=== PATIENT | female | born 1965 | race African-American/Black ===

== ENCOUNTER 2019-03-23 03:06 | Inpatient (IN) | payer MEDICAID ==
[~2019-03-23] VITALS: Ht 170.2 cm; Wt 125.6 kg
[2019-03-23] MEDS ORDERED: ONDANSETRON HCL 4MG/2ML INJ IV STA (04:01)
[2019-03-23] MEDS ORDERED: MORPHINE SULFATE 4 MG/ML CPJ (NOT FOR IM USE) IV STA (04:01)
[2019-03-23] MEDS ORDERED: PROPOFOL 200MG/20ML VIAL IV ONE (04:15)
[2019-03-23] MEDS ORDERED: ONDANSETRON HCL 4MG/2ML INJ IV ONE (04:15)
[2019-03-23 04:22] LABS: BASOPHILS % 0.5 % (0.0-2.0); EOSINOPHILS % 0.3 % (0.0-5.0); HEMATOCRIT. 44.9 % (36.0-48.0); HEMOGLOBIN. 14.3 g/dL (12.0-16.0); LYMPHOCYTES % 9.4 % (20.0-50.0); MEAN CORPUSCULAR HEMOGLOBIN 25.4 pg (28.0-32.0); MEAN CORPUSCULAR VOLUME 79.8 fL (81.0-99.0); MEAN PLATELET VOLUME 8.8 fl (7.4-10.4); MONOCYTES % 5.4 % (2.0-8.0); NEUTROPHILS % 84.4 % (40.0-76.0); PLATELET 225 x1000/uL (130-400); RED BLOOD CELL COUNT 5.62 mill/uL (4.2-5.4); RED CELL DISTRIBUTION WIDTH 14.8 % (11.6-14.6)
[2019-03-23 04:26] LABS: CHLORIDE 99 mEq/L (98-107)
[2019-03-23] MEDS ORDERED: SODIUM CHLORIDE 0.9% 1,000 ML IV ONE (04:59)
[2019-03-23] MEDS ORDERED: MORPHINE SULFATE 2 MG/ML CPJ (NOT FOR IM USE) IV PRN (08:30)
[2019-03-23] MEDS ORDERED: ONDANSETRON HCL 4MG/2ML INJ IV PRN ×3 (08:30→18:00)
[2019-03-23] MEDS ORDERED: HYDROCODONE/ACETAMINOPHEN 5/325MG TABLET PO PRN (08:30)
[2019-03-23] MEDS ORDERED: DEXTROSE 50% WATER 50ML SYRINGE IV PRN (08:45)
[2019-03-23 08:50] VITALS: BP 116/55
[2019-03-23 09:00] VITALS: BP 116/55
[2019-03-23] MEDS ORDERED: FUROSEMIDE 40MG/4ML VIAL IVP SCH (09:00)
[2019-03-23] MEDS ORDERED: CLONIDINE 0.1MG TABLET PO PRN (09:00)
[2019-03-23 09:04] LABS: LDL CHOLESTEROL 91 mg/dL (5-100)
[2019-03-23 09:06] LABS: HDL CHOLESTEROL 31 mg/dL (40-59)
[2019-03-23 12:00] VITALS: BP 101/48
[2019-03-23] MEDS: INSULIN LISPRO 100 UNITS/ML SUBCUT SCH ×3 (12:50→22:14)
[2019-03-23] MEDS: BLOOD SUGAR DIAGNOSTIC STRIP TEST SCH ×3 (12:59→21:00)
[2019-03-23] MEDS ORDERED: BUPIVACAINE HCL 0.5% (5MG/ML) 50ML ONE (14:16)
[2019-03-23] MEDS ORDERED: BUPIVACAINE HCL/EPINEPHRINE/PF 0.5%/0.0005 10ML ONE (14:19)
[2019-03-23] MEDS ORDERED: BACITRACIN 50,000 UNITS/VIAL ONE (14:22)
[2019-03-23 16:00] VITALS: BP 118/56
[2019-03-23 16:03] LABS: INR 1.1; PARTIAL THROMBOPLASTIN TIME 26.8 sec (23.4-31.0); PROTHROMBIN TIME 10.9 sec (9.6-11.0)
[2019-03-23] MEDS ORDERED: VANCOMYCIN HCL 1 GM/VIAL ONE (16:56)
[2019-03-23] MEDS ORDERED: CLINDAMYCIN 900 MG PREMIX 50 ML IV ONE (17:25)
[2019-03-23] MEDS ORDERED: FENTANYL CITRATE/PF 50MCG/ML 2ML VIAL ONE (17:28)
[2019-03-23] MEDS ORDERED: MEPERIDINE HCL/PF 25MG/ML CPJ IV PRN (18:00)
[2019-03-23] MEDS ORDERED: LABETALOL 5MG/ML SYR 20 MG/4 ML SYRINGE IV PRN (18:00)
[2019-03-23] MEDS ORDERED: HYDROMORPHONE HCL/PF 2MG/ML CPJ IV PRN (18:00)
[2019-03-23 18:27] LABS: CLARITY URINE CLEAR (CLEAR); COLOR URINE YELLOW (YELLOW); KETONES URINE NEGATIVE (NEGATIVE); LEUKOCYTE ESTERASE URINE NEGATIVE (NEGATIVE); NITRITE URINE POSITIVE (NEGATIVE); OCCULT BLOOD URINE 1+ (NEGATIVE); PROTEIN URINE NEGATIVE (NEGATIVE); SPECIFIC GRAVITY URINE 1.008 (1.005-1.030); UROBILINOGEN URINE 0.2 E.U./dL (0.2-1.0)
[2019-03-23 18:39] LABS: *AMPHETAMINES SCREEN URINE NEGATIVE (NEGATIVE); *BARBITURATES SCREEN URINE NEGATIVE (NEGATIVE); *BENZODIAZEPINES SCREEN URINE NEGATIVE (NEGATIVE); *COCAINE SCREEN URINE NEGATIVE (NEGATIVE)
[2019-03-23 18:40] LABS: CANNABINOID URINE SCREEN NEGATIVE (NEGATIVE); METHADONE URINE SCREEN NEGATIVE (NEGATIVE); OPIATES URINE SCREEN PRESUMTIVE POSITIVE (NEGATIVE); PHENCYCLIDINE URINE SCREEN NEGATIVE (NEGATIVE)
[2019-03-23 20:43] VITALS: BP 120/62
[2019-03-23] MEDS: HYDROMORPHONE HCL/PF 2MG/ML CPJ IV PRN (22:04)
[2019-03-23] MEDS: CLINDAMYCIN 900 MG PREMIX 50 ML IV SCH (22:24)
[2019-03-24] VITALS (7 sets, daily range): BP systolic 108–127; BP diastolic 47–88
[2019-03-24] MEDS: CLINDAMYCIN 900 MG PREMIX 50 ML IV SCH (04:17)
[2019-03-24] MEDS: HYDROCODONE/ACETAMINOPHEN 5/325MG TABLET PO PRN ×5 (05:25→22:28)
[2019-03-24 06:54] LABS: HEMATOCRIT. 39.4 % (36.0-48.0); HEMOGLOBIN. 12.6 g/dL (12.0-16.0); MEAN CORPUSCULAR HEMOGLOBIN 25.3 pg (28.0-32.0); MEAN CORPUSCULAR VOLUME 79.3 fL (81.0-99.0); MEAN PLATELET VOLUME 8.8 fl (7.4-10.4); PLATELET 227 x1000/uL (130-400); RED BLOOD CELL COUNT 4.97 mill/uL (4.2-5.4); RED CELL DISTRIBUTION WIDTH 15.2 % (11.6-14.6)
[2019-03-24] MEDS: BLOOD SUGAR DIAGNOSTIC STRIP TEST SCH ×4 (07:12→21:00)
[2019-03-24 08:04] LABS: CHLORIDE 101 mEq/L (98-107)
[2019-03-24] MEDS: ENOXAPARIN 40MG/0.4ML SYR SUBCUT SCH ×2 (08:29→22:26)
[2019-03-24] MEDS: INSULIN LISPRO 100 UNITS/ML SUBCUT SCH ×4 (08:35→22:28)
[2019-03-24 13:06] LABS: PLATELET ESTIMATE NORMAL
[2019-03-24] MEDS: LEVOFLOXACIN 500MG PREMIX 100 ML IV SCH (14:16)
[2019-03-25] VITALS: BP 112/72
[2019-03-25 04:00] VITALS: BP 121/78
[2019-03-25] MEDS: HYDROCODONE/ACETAMINOPHEN 5/325MG TABLET PO PRN ×2 (05:21→19:05)
[2019-03-25 06:38] LABS: BASOPHILS % 0.3 % (0.0-2.0); EOSINOPHILS % 0.8 % (0.0-5.0); HEMOGLOBIN. 12.6 g/dL (12.0-16.0); LYMPHOCYTES % 18.1 % (20.0-50.0); MEAN CORPUSCULAR HEMOGLOBIN 25.7 pg (28.0-32.0); MEAN CORPUSCULAR VOLUME 79.5 fL (81.0-99.0); MONOCYTES % 9.1 % (2.0-8.0); NEUTROPHILS % 71.7 % (40.0-76.0); PLATELET 202 x1000/uL (130-400); RED CELL DISTRIBUTION WIDTH 15.1 % (11.6-14.6)
[2019-03-25] MEDS: BLOOD SUGAR DIAGNOSTIC STRIP TEST SCH ×4 (06:56→21:12)
[2019-03-25 07:51] VITALS: BP 89/55
[2019-03-25 08:14] LABS: CHLORIDE 102 mEq/L (98-107)
[2019-03-25] MEDS: INSULIN LISPRO 100 UNITS/ML SUBCUT SCH ×4 (08:26→21:30)
[2019-03-25] MEDS: ENOXAPARIN 40MG/0.4ML SYR SUBCUT SCH ×2 (08:27→21:29)
[2019-03-25 11:23] VITALS: BP 114/64
[2019-03-25] MEDS: LEVOFLOXACIN 500MG PREMIX 100 ML IV SCH (12:33)
[2019-03-25] MEDS ORDERED: LEVO500T2 MT (14:33)
[2019-03-25] MEDS ORDERED: HYDR-4001 MT (14:33)
[2019-03-25 15:48] VITALS: BP 112/70
[2019-03-25 20:00] VITALS: BP 100/58
[2019-03-26] VITALS: BP 113/75
[2019-03-26] MEDS: HYDROCODONE/ACETAMINOPHEN 5/325MG TABLET PO PRN ×3 (00:50→21:01)
[2019-03-26 04:00] VITALS: BP 116/63
[2019-03-26] MEDS: BLOOD SUGAR DIAGNOSTIC STRIP TEST SCH ×4 (06:28→21:00)
[2019-03-26 07:11] LABS: BASOPHILS % 0.4 % (0.0-2.0); EOSINOPHILS % 0.6 % (0.0-5.0); HEMATOCRIT. 38.9 % (36.0-48.0); HEMOGLOBIN. 12.7 g/dL (12.0-16.0); LYMPHOCYTES % 18.3 % (20.0-50.0); MEAN CORPUSCULAR HEMOGLOBIN 25.8 pg (28.0-32.0); MEAN CORPUSCULAR VOLUME 78.9 fL (81.0-99.0); MEAN PLATELET VOLUME 8.8 fl (7.4-10.4); MONOCYTES % 7.5 % (2.0-8.0); NEUTROPHILS % 73.2 % (40.0-76.0); PLATELET 219 x1000/uL (130-400); RED BLOOD CELL COUNT 4.93 mill/uL (4.2-5.4); RED CELL DISTRIBUTION WIDTH 14.8 % (11.6-14.6)
[2019-03-26 07:15] LABS: CHLORIDE 100 mEq/L (98-107)
[2019-03-26 08:07] VITALS: BP 129/81
[2019-03-26] MEDS: ENOXAPARIN 30MG/0.3ML SYR SUBCUT SCH ×2 (09:09→21:00)
[2019-03-26] MEDS: INSULIN LISPRO 100 UNITS/ML SUBCUT SCH ×4 (09:28→21:00)
[2019-03-26 11:43] VITALS: BP 99/60
[2019-03-26] MEDS: LEVOFLOXACIN 500MG PREMIX 100 ML IV SCH (13:27)
[2019-03-26 16:33] VITALS: BP 117/54
[2019-03-26] MEDS: DOCUSATE SODIUM 250MG CAPSULE PO SCH (17:50)
[2019-03-26 20:00] VITALS: BP 111/60
[2019-03-27] VITALS: BP 126/72
[2019-03-27 04:00] VITALS: BP 104/48
[2019-03-27] MEDS: HYDROCODONE/ACETAMINOPHEN 5/325MG TABLET PO PRN ×2 (05:40→19:59)
[2019-03-27] MEDS: BLOOD SUGAR DIAGNOSTIC STRIP TEST SCH ×4 (06:22→20:06)
[2019-03-27 06:37] LABS: BASOPHILS % 0.4 % (0.0-2.0); EOSINOPHILS % 0.7 % (0.0-5.0); HEMATOCRIT. 40.3 % (36.0-48.0); HEMOGLOBIN. 13.1 g/dL (12.0-16.0); MEAN CORPUSCULAR HEMOGLOBIN 25.7 pg (28.0-32.0); MEAN CORPUSCULAR VOLUME 79.1 fL (81.0-99.0); MEAN PLATELET VOLUME 8.7 fl (7.4-10.4); MONOCYTES % 6.8 % (2.0-8.0); NEUTROPHILS % 76.1 % (40.0-76.0); PLATELET 246 x1000/uL (130-400); RED BLOOD CELL COUNT 5.09 mill/uL (4.2-5.4); RED CELL DISTRIBUTION WIDTH 15.2 % (11.6-14.6)
[2019-03-27 07:33] LABS: CHLORIDE 101 mEq/L (98-107)
[2019-03-27 08:00] VITALS: BP 147/80
[2019-03-27] MEDS: HYDROMORPHONE HCL/PF 2MG/ML CPJ IV PRN (09:29)
[2019-03-27] MEDS: ENOXAPARIN 30MG/0.3ML SYR SUBCUT SCH ×2 (09:31→20:02)
[2019-03-27] MEDS: DOCUSATE SODIUM 250MG CAPSULE PO SCH (09:31)
[2019-03-27] MEDS: INSULIN LISPRO 100 UNITS/ML SUBCUT SCH ×4 (09:51→20:06)
[2019-03-27 12:00] VITALS: BP 142/86
[2019-03-27] MEDS: LEVOFLOXACIN 500MG PREMIX 100 ML IV SCH (15:28)
[2019-03-27 16:00] VITALS: BP 115/50
[2019-03-27 20:00] VITALS: BP 113/89
[2019-03-28] VITALS: BP 118/65
[2019-03-28] MEDS: HYDROCODONE/ACETAMINOPHEN 5/325MG TABLET PO PRN ×4 (01:34→14:47)
[2019-03-28 04:00] VITALS: BP 109/56
[2019-03-28] MEDS: BLOOD SUGAR DIAGNOSTIC STRIP TEST SCH ×4 (06:24→21:53)
[2019-03-28 08:00] VITALS: BP 111/72
[2019-03-28] MEDS: ENOXAPARIN 30MG/0.3ML SYR SUBCUT SCH ×2 (08:45→21:53)
[2019-03-28] MEDS: DOCUSATE SODIUM 250MG CAPSULE PO SCH (08:46)
[2019-03-28] MEDS: INSULIN LISPRO 100 UNITS/ML SUBCUT SCH ×4 (09:23→21:55)
[2019-03-28] MEDS ORDERED: DIPHENHYDRAMINE 50MG CAPSULE PO PRN (09:45)
[2019-03-28 12:00] VITALS: BP 111/71
[2019-03-28] MEDS: LEVOFLOXACIN 500MG PREMIX 100 ML IV SCH (13:17)
[2019-03-28] MEDS ORDERED: LACTULOSE 20G/30ML UDC PO NR (15:27)
[2019-03-28 16:00] VITALS: BP 113/50
[2019-03-28 20:00] VITALS: BP 140/80
[2019-03-28] MEDS: ACETAMINOPHEN 325MG TABLET PO PRN (21:51)
[2019-03-29] VITALS: BP 138/66
[2019-03-29 04:00] VITALS: BP 118/57
[2019-03-29 05:50] LABS: BASOPHILS % 0.1 % (0.0-2.0); EOSINOPHILS % 1.4 % (0.0-5.0); HEMOGLOBIN. 13.1 g/dL (12.0-16.0); LYMPHOCYTES % 14.9 % (20.0-50.0); MEAN CORPUSCULAR HEMOGLOBIN 25.9 pg (28.0-32.0); MEAN CORPUSCULAR VOLUME 79.1 fL (81.0-99.0); MEAN PLATELET VOLUME 8.5 fl (7.4-10.4); MONOCYTES % 6.2 % (2.0-8.0); NEUTROPHILS % 77.4 % (40.0-76.0); PLATELET 241 x1000/uL (130-400); RED BLOOD CELL COUNT 5.06 mill/uL (4.2-5.4); RED CELL DISTRIBUTION WIDTH 14.9 % (11.6-14.6)
[2019-03-29 06:43] LABS: CHLORIDE 102 mEq/L (98-107)
[2019-03-29] MEDS: INSULIN LISPRO 100 UNITS/ML SUBCUT SCH ×5 (07:50→21:16)
[2019-03-29] MEDS: ENOXAPARIN 30MG/0.3ML SYR SUBCUT SCH ×2 (11:01→21:34)
[2019-03-29] MEDS: DOCUSATE SODIUM 250MG CAPSULE PO SCH (11:02)
[2019-03-29] MEDS: BLOOD SUGAR DIAGNOSTIC STRIP TEST SCH ×4 (12:20→21:34)
[2019-03-29 12:38] VITALS: BP 129/67
[2019-03-29] MEDS: LEVOFLOXACIN 500MG PREMIX 100 ML IV SCH (13:53)
[2019-03-29] MEDS: ACETAMINOPHEN 325MG TABLET PO PRN ×2 (14:42→21:34)
[2019-03-29 15:55] VITALS: BP 116/78
[2019-03-29 20:00] VITALS: BP 131/90
[2019-03-30] VITALS: BP 118/71
[2019-03-30 04:00] VITALS: BP 131/83
[2019-03-30] MEDS: ACETAMINOPHEN 325MG TABLET PO PRN ×2 (06:56→20:54)
[2019-03-30] MEDS: BLOOD SUGAR DIAGNOSTIC STRIP TEST SCH ×4 (06:59→20:54)
[2019-03-30 07:49] LABS: BASOPHILS % 0.5 % (0.0-2.0); EOSINOPHILS % 1.4 % (0.0-5.0); HEMATOCRIT. 40.6 % (36.0-48.0); LYMPHOCYTES % 14.6 % (20.0-50.0); MEAN CORPUSCULAR HEMOGLOBIN 25.6 pg (28.0-32.0); MEAN PLATELET VOLUME 8.6 fl (7.4-10.4); MONOCYTES % 5.9 % (2.0-8.0); NEUTROPHILS % 77.6 % (40.0-76.0); PLATELET 243 x1000/uL (130-400); RED BLOOD CELL COUNT 5.07 mill/uL (4.2-5.4); RED CELL DISTRIBUTION WIDTH 15.5 % (11.6-14.6)
[2019-03-30] MEDS: INSULIN LISPRO 100 UNITS/ML SUBCUT SCH ×4 (07:50→20:24)
[2019-03-30 08:00] VITALS: BP 115/61
[2019-03-30 08:15] LABS: CHLORIDE 104 mEq/L (98-107)
[2019-03-30] MEDS: DOCUSATE SODIUM 250MG CAPSULE PO SCH (09:43)
[2019-03-30] MEDS: ENOXAPARIN 30MG/0.3ML SYR SUBCUT SCH ×2 (09:43→20:54)
[2019-03-30 11:32] VITALS: BP 115/82
[2019-03-30] MEDS: LEVOFLOXACIN 500MG PREMIX 100 ML IV SCH (13:03)
[2019-03-30 14:54] VITALS: BP 134/74
[2019-03-30 20:00] VITALS: BP 114/61
[2019-03-31] VITALS: BP 124/74
[2019-03-31 04:00] VITALS: BP 112/75
[2019-03-31] MEDS: ACETAMINOPHEN 325MG TABLET PO PRN ×2 (06:12→12:36)
[2019-03-31] MEDS: BLOOD SUGAR DIAGNOSTIC STRIP TEST SCH ×3 (06:52→17:41)
[2019-03-31 08:00] VITALS: BP 105/57
[2019-03-31] MEDS: DOCUSATE SODIUM 250MG CAPSULE PO SCH (08:33)
[2019-03-31] MEDS: INSULIN LISPRO 100 UNITS/ML SUBCUT SCH ×3 (08:33→17:47)
[2019-03-31] MEDS: ENOXAPARIN 30MG/0.3ML SYR SUBCUT SCH (08:33)
[2019-03-31 12:00] VITALS: BP 102/71
[2019-03-31] MEDS: LEVOFLOXACIN 500MG PREMIX 100 ML IV SCH (12:29)
[2019-03-31 16:00] VITALS: BP 110/70
[2019-03-31 16:32] VITALS: BP 110/70
== END 2019-03-31 19:10 | DRG 313 ==
LOC: ER 03:06 → 6WST 05:50 → EDBEDREQ 05:53 → EDBEDREQSVC 05:53 → EDBEDREQTM 05:53 → ENRESERV 07:22
PROVIDERS: ADMIT Internal Medicine; ATTEND Internal Medicine
PROC: 0QSG04Z Reposition Right Tibia with Internal Fixation Device, Open Approach (ICD-10-PCS; principal; 2019-03-23)
PROC: 0QSJ04Z Reposition Right Fibula with Internal Fixation Device, Open Approach (ICD-10-PCS; 2019-03-23)
PROC: BQ1G1ZZ Fluoroscopy of Right Ankle using Low Osmolar Contrast (ICD-10-PCS; 2019-03-23)
PROC: 0SSFXZZ Reposition Right Ankle Joint, External Approach (ICD-10-PCS; 2019-03-23)
DX: S82.851A Displaced trimalleolar fracture of right lower leg, initial encounter for closed fracture (principal); A41.9 Sepsis, unspecified organism; E87.1 Hypo-osmolality and hyponatremia; Z68.41 Body mass index [BMI] 40.0-44.9, adult; I11.9 Hypertensive heart disease without heart failure; E11.9 Type 2 diabetes mellitus without complications; E66.9 Obesity, unspecified; E78.5 Hyperlipidemia, unspecified; N39.0 Urinary tract infection, site not specified; Y93.01 Activity, walking, marching and hiking; E78.00 Pure hypercholesterolemia, unspecified; W01.0XXA Fall on same level from slipping, tripping and stumbling without subsequent striking against object, initial encounter; Z88.0 Allergy status to penicillin; Z79.899 Other long term (current) drug therapy; Y92.89 Other specified places as the place of occurrence of the external cause; Z83.3 Family history of diabetes mellitus; Y99.8 Other external cause status; Z71.89 Other specified counseling
CPT/HCPCS: 36415; 71045; 73590; 73600; 76000; 80048; 80053; 80061; 80305; 81003; 82962; 83880; 84145; 84484; 85025; 86850; 86900; 93005; 93306; 93970; 97110; 97161; 97166; 97530; 97535; 99285; J0171; J1170; J1650; J1815; J1940; J1956; J2270; J2405; J2704; J3010; J3370; J3490; J7030; A4315